=== PATIENT | female | born 1990 | race African-American/Black ===

== ENCOUNTER 2018-02-06 04:48 | Emergency (ER) | payer OTHER ==
[2018-02-06 04:51] VITALS: BP 119/71; PULSE 110; TEMP 98.1; BMI 23.4
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
[2018-02-06 05:03] LABS: URINE APPEARANCE CLEAR; URINE BILIRUBIN NEGATIVE (<2.0 mg/dL); URINE COLOR COLORLESS; URINE GLUCOSE (UA) NEGATIVE (NEGATIVE); URINE KETONE NEGATIVE (NEGATIVE); URINE LEUK ESTERASE NEGATIVE (NEGATIVE); URINE NITRITE NEGATIVE (NEGATIVE); URINE PROTEIN NEGATIVE (NEGATIVE); URINE UROBILINOGEN NEGATIVE mg/dL (0.2-1.0)
[2018-02-06] MEDS ORDERED: IBUPROFEN 400 MG TABLET (FP) PO ONE ×2 (05:08→05:10)
== END 2018-02-06 05:55 | disposition home or self-care (01) ==
LOC: JER 04:48
DX: S09.8XXA Other specified injuries of head, initial encounter (principal); S89.82XA Other specified injuries of left lower leg, initial encounter; V43.52XA Car driver injured in collision with other type car in traffic accident, initial encounter; W22.11XA Striking against or struck by driver side automobile airbag, initial encounter; Y92.488 Other paved roadways as the place of occurrence of the external cause; Y93.89 Activity, other specified; Y99.8 Other external cause status
CPT/HCPCS: 70450-TC; 73560-TC-LT-FY; 81003; 84703; 99282-25

== ENCOUNTER 2019-06-07 12:34 | Emergency (ER) | payer OTHER ==
[2019-06-07 12:54] VITALS: BP 122/76; PULSE 71; TEMP 98; BMI 20.5
--- NOTE | 2019-06-07 13:27 | PDOC ---
History of Present Illness - General Chief Complaint: Injury Stated Complaint: FALL Time Seen by Provider: 06/07/19 13:04 - History of Present Illness Initial Comments: 06/07/19 13:27 CHIEF COMPLAINT: fall, head/neck pain HISTORY OF PRESENT ILLNESS: 29 yo F with no significant PMH presents to [facility] with pain to head and neck s/p fall. Patient reports slipping and falling on wet floor of her father's restaurant two days ago and landed on her head. She denies any LOC, nausea, or vomiting, but reports pain to posterior head and pain to neck with movement. No recent travel or sick contacts. PAST MEDICAL HISTORY: Denies past medical history FAMILY HISTORY: Denies SOCIAL HISTORY: Denies tobacco, alcohol, illicit drug use. SURGICAL HISTORY: Denies ALLERGIES: amoxicillin REVIEW OF SYSTEMS General/Constitutional: Denies fever or chills. Denies weakness, weight change. HEENT: Denies change in vision. Denies ear pain or discharge. Denies sore throat. Cardiovascular: Denies chest pain or shortness of breath. Respiratory: Denies cough, wheezing, or hemoptysis. Gastrointestinal: Denies nausea, vomiting, diarrhea or constipation. Denies rectal bleeding. Genitourinary: Denies dysuria, frequency, or change in urination. Musculoskeletal: Pain to neck with movement. Denies joint or muscle swelling or pain. Skin: Denies rash or easy bruising. Neurologic: Pain to back of head, denies headache, vertigo, loss of consciousness, or loss of sensation. Psychiatric: Denies depression or anxiety. PHYSICAL EXAM General Appearance: Well-appearing, appropriately dressed. No apparent distress , no intoxication. HEENT: EOMI, PERRLA, normal ENT inspection, normal voice, TMs normal, pharynx normal. No conjunctival pallor. No photophobia, scleral icterus. Neck: Supple. Trachea midline. No tenderness, rigidity, carotid bruit, stridor , lymphadenopathy, or thyromegaly. Respiratory/Chest: Lungs CTAB. No shortness of breath, chest tenderness, respiratory distress, accessory muscle use. No crackles, rales, rhonchi, stridor , wheezing, dullness Cardiovascular: RRR. S1, S2. No JVD, murmur, bradycardia, tachycardia. Vascular Pulses: Dorsalis-Pedis (R): 2+, Dorsalis-Pedis (L): 2+ Gastrointestinal/Abdominal: Normal bowel sounds. Abdomen soft, non-distended. No tenderness or rebound tenderness. No organomegaly, pulsatile mass, guarding , hernia, hepatomegaly, splenomegaly. Lymphatic: No adenopathy, tenderness. Musculoskeletal/Extremities: Normal inspection. FROM of all extremities, normal capillary refill. Pelvis Stable. No CVA tenderness. No tenderness to extremities, pedal edema, swelling, erythema or deformity. Integumentary: Appropriate color, dry, warm. No cyanosis, erythema, jaundice or rash Neurologic: sulky driver II-XII intact. Fully oriented, alert. Appropriate mood/affect. Motor strength 5/5. No appreciable EOM palsy, facial droop or sensory deficit. 06/07/19 13:32 Past History - Past Medical History Allergies/Adverse Reactions: Allergies Allergy/AdvReac Type Severity Reaction Status Date / Time amoxicillin Allergy Verified 06/07/19 12:54 Home Medications: Ambulatory Orders Ibuprofen [Motrin -] 400 mg PO TID #21 tablet 02/06/18 Methocarbamol [Robaxin -] 500 mg PO BID #14 tablet 02/06/18 Cyclobenzaprine HCl 5 mg PO HS #10 tablet 06/07/19 Diclofenac Sodium 75 mg PO BID #20 tablet. 06/07/19 COPD: No - Psycho Social/Smoking Cessation Hx Smoking History: Never smoked *Physical Exam - Vital Signs Last Vital Signs Temp Pulse Resp BP Pulse Ox 98 F 71 18 122/76 100 06/07/19 12:51 06/07/19 12:51 06/07/19 12:51 06/07/19 12:51 06/07/19 12:51 ED Treatment Course - RADIOLOGY Radiology Studies Ordered: Category Date Time Status HEAD CT WITHOUT CONTRAST [CT] Stat CT Scan 06/07/19 13:16 Ordered Medical Decision Making - Medical Decision Making 06/07/19 13:34 29 yo F with no significant PMH presents to [facility] with pain to head and neck s/p fall. -upreg -head/neck 06/07/19 15:27 CTs negative. NSAIDS, muscle relaxants. F/u with PCP/ortho. Discharge - Discharge Information Problems reviewed: Yes Clinical Impression/Diagnosis: Post concussion syndrome Fall Qualifiers: Encounter type: initial encounter Qualified Code(s): W19.XXXA - Unspecified fall, initial encounter Closed head injury Qualifiers: Encounter type: initial encounter Qualified Code(s): S09.90XA - Unspecified injury of head, initial encounter Condition: Stable Disposition: HOME - Admission No - Additional Discharge Information Prescriptions: Cyclobenzaprine HCl 5 mg PO HS #10 tablet Diclofenac Sodium 75 mg PO BID #20 tablet.dr - Follow up/Referral - Patient Discharge Instructions Patient Printed Discharge Instructions: DI for Closed Head Injury, DI for Postconcussion Syndrome Additional Instructions: Please take medications as prescribed. Follow up with your primary care doctor within the next week for continued monitoring. If you develop change in vision , nausea/vomiting, new or worsening headache or dizziness, or any new concerning symptoms, please return to the ER. - Post Discharge Activity
== END 2019-06-07 15:28 | disposition home or self-care (01) ==
LOC: JERFT 12:34
DX: S09.8XXA Other specified injuries of head, initial encounter (principal); F07.81 Postconcussional syndrome; G44.319 Acute post-traumatic headache, not intractable; W01.0XXA Fall on same level from slipping, tripping and stumbling without subsequent striking against object, initial encounter; Y93.89 Activity, other specified; Y92.511 Restaurant or cafe as the place of occurrence of the external cause; Y99.8 Other external cause status; Z88.0 Allergy status to penicillin
CPT/HCPCS: 70450-TC; 72125-TC; 84703; 99281-25